=== PATIENT | female | born 1975 | race Caucasian/White ===

== ENCOUNTER 2016-12-11 18:16 | Emergency (ER) | payer OTHER ==
[~2016-12-11] VITALS: Ht 157.5 cm; Wt 96.6 kg
[2016-12-11 20:48] LABS: BASOPHIL % 0.5 % (0-2); PLATELET COUNT 357 x10^3mcL (130-400)
[2016-12-11 20:56] LABS: CARBON DIOXIDE 26.1 mmol/L (21-32); CHLORIDE SERUM 104 mmol/L (98-107); CREATININE SERUM 0.7 mg/dL (0.6-1.0); GFR1 > 60 mL/min; GLUCOSE SERUM 96 mg/dL (74-106); SODIUM SERUM 140 mmol/L (136-145)
[2016-12-11 20:57] LABS: RED CELL DISTRIBUTION WIDTH 16.3 % (11.5-14.5)
[2016-12-11 21:01] LABS: ALBUMIN 3.7 g/dL (3.4-5.0); ALKALINE PHOSPHATASE 56 U/L (46-116); ALT/SGPT 40 U/L (14-59); AST/SGOT 18 U/L (15-37); BILIRUBIN TOTAL 0.2 mg/dL (0.20-1.00); TOTAL PROTEIN, SERUM 7.4 g/dL (6.4-8.2)
[2016-12-11 23:19] VITALS: BP 130/75
== END 2016-12-11 23:20 | disposition home or self-care (01) ==
LOC: ED 18:16
PROVIDERS: Emergency Medicine
DX: J45.901 Unspecified asthma with (acute) exacerbation (principal); Z79.51 Long term (current) use of inhaled steroids
CPT/HCPCS: J1100; J1200; J7030; J7613; Q0092